=== PATIENT | female | born 1985 | race Caucasian/White ===

== ENCOUNTER → 2021-01-27 15:43 | Outpatient (CLI) | payer OTHER, MEDICAID, SELFPAY ==
--- NOTE | 2021-01-27 15:50 | DI.MRI.S_ITS ---
PROCEDURE: MR WRIST LT WO CON INDICATIONS: GANGLION,LEFT WRIST TECHNIQUE: Noncontrast coronal proton density fast spin echo and T2 fast spin echo with fat saturation; coronal 3-D gradient echo, axial T1 spin echo and T2 fast spin echo with fat saturation, sagittal T1 spin echo through the wrist. COMPARISON: None. FINDINGS: Image quality: There is mild inhomogeneous fat saturation. Bones and cartilage: The carpal bones are normally aligned. No bone marrow contusions or fractures. No evidence for avascular necrosis. Overlying cartilage surfaces appear normal. Carpal ligaments: The scapholunate ligament is intermediate in signal and slightly thickened compatible with sequelae of a prior sprain or chronic degeneration. The lunotriquetral ligament appears intact. In the absence of intra-articular contrast, the extrinsic carpal ligaments are not well identified. On sagittal images, the pisohamate ligament appears intact. Triangular fibrocartilage complex: The triangular fibrocartilage demonstrates a small perforation adjacent to its radial attachment. The adjacent meniscal homolog demonstrates mild degenerative signal. The extensor carpi ulnaris tendon is normal in location and morphology. Tendons and soft tissues: The carpal tunnel structures appear normal, including the median nerve. The ulnar nerve appears normal within Guyon's canal. All six extensor tendon compartments demonstrate normal morphology, without pathologic tendon sheath fluid. There is a small loculated fluid collection along the volar ulnar aspect of the wrist measuring up to approximately 0.8 x 0.3 x 1.2 cm with mild adjacent soft tissue edema compatible with a small ganglion cyst. Along the volar radial aspect of the wrist, there is also a small lobulated circumscribed cyst measuring up to 1.2 x 0.4 x 0.6 cm also compatible with a small ganglion cyst. IMPRESSION: 1. Small loculated fluid collections along the ulnar and radial volar aspect of the wrist as described compatible with ganglion cysts. 2. Small perforation of the triangular fibrocartilage adjacent to its radial attachment. 3. Findings compatible with a prior sprain or degenerative change of the scapholunate ligament. Dictated by: Romie Price M.D. on 01/30/2021 at 12:11 Approved by: Romie Price M.D. on 01/30/2021 at 12:34
== END ==
PROVIDERS: Referring Provider Counselor Mental Health; Visit Provider Counselor Mental Health
DX: M67.432 Ganglion, left wrist (principal)
CPT/HCPCS: 73221